=== PATIENT | male | born 1990 | race Two or more races ===

== ENCOUNTER 2018-12-21 22:46 | Emergency (ER) | payer SELFPAY ==
[2018-12-21 22:50] VITALS: O2SAT 96
[2018-12-22] MEDS ORDERED: Lidocaine 1% Inj (20ml) IJ STA (00:02)
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
[2018-12-22] MEDS ORDERED: Povidone Iodine Topical 10% Sol ONE (00:13)
[2018-12-22] MEDS ORDERED: Lidocaine 1% Inj (20ml) ONE (00:16)
[2018-12-22 03:25] VITALS: BP 108/50; RESP 18; TEMP 97.9
[2018-12-22 03:58] VITALS: PULSE 101
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
--- NOTE | 2018-12-22 09:36 | CT ---
Date of service: 12/22/2018 PROCEDURE: CT HEAD WITHOUT CONTRAST. HISTORY: head injury COMPARISON: None available. TECHNIQUE: Axial computed tomography images were obtained through the head/brain without intravenous contrast. Radiation dose: Total exam DLP = 811.15 mGy-cm. This CT exam was performed using one or more of the following dose reduction techniques: Automated exposure control, adjustment of the mA and/or kV according to patient size, and/or use of iterative reconstruction technique. FINDINGS: HEMORRHAGE: No intracranial hemorrhage. BRAIN: Normal [place]-white matter differentiation and density are appreciated throughout the cerebrum and cerebellum with the brainstem appearing unremarkable as well. There is no mass effect. There is no suspicious extra-axial fluid collection and the midline brain anatomy appears diffusely unremarkable. VENTRICLES: Unremarkable. No hydrocephalus. CALVARIUM: Unremarkable. PARANASAL SINUSES: Unremarkable as visualized. No significant inflammatory changes. MASTOID AIR CELLS: Unremarkable as visualized. No inflammatory changes. OTHER FINDINGS: None. IMPRESSION: Unremarkable unenhanced head CT. Concordant preliminary report from [facility], 12/22/2018, 12:40 a.m..
== END 2018-12-22 04:13 | disposition home or self-care (01) ==
LOC: H.ER 22:46
DX: F10.129 Alcohol abuse with intoxication, unspecified (principal); S61.214A Laceration without foreign body of right ring finger without damage to nail, initial encounter; S09.90XA Unspecified injury of head, initial encounter; S00.531A Contusion of lip, initial encounter; X99.1XXA Assault by knife, initial encounter; Y04.0XXA Assault by unarmed brawl or fight, initial encounter; Y92.89 Other specified places as the place of occurrence of the external cause